=== PATIENT | male | born 1970 | race Caucasian/White ===

== ENCOUNTER 2016-10-01 20:48 | Emergency (ER) | payer MEDICAID ==
[~2016-10-01] VITALS: Ht 180.3 cm; Wt 115.6 kg
[~2016-10-01 20:48] MED LIST: RANI75TA12 PO
[2016-10-01 20:50] VITALS: BP 155/97
[2016-10-01] MEDS ORDERED: SILVER SULF. CRM 1%, 50GM ONE (21:28)
[2016-10-01] MEDS ORDERED: DIPH,PERTUSS(ACELL),TET VAC/PF 0.5 ML IM-VACC ONE ×2 (21:29→21:30)
[2016-10-01] MEDS ORDERED: SILVER SULF. CRM 1% , 25GM TP ONE (21:30)
[2016-10-01] MEDS ORDERED: HYDROcodone/APAP 5/325 TABLET PO STA (22:00)
[2016-10-01] MEDS ORDERED: HYDROcodone/APAP 5/325 TABLET ONE (22:01)
== END 2016-10-01 22:32 | disposition home or self-care (01) ==
LOC: ED 22:12
DX: T24.202A Burn of second degree of unspecified site of left lower limb, except ankle and foot, initial encounter (principal); W86.8XXA Exposure to other electric current, initial encounter; Y93.9 Activity, unspecified; Y92.89 Other specified places as the place of occurrence of the external cause; Y99.9 Unspecified external cause status; F17.200 Nicotine dependence, unspecified, uncomplicated
CPT/HCPCS: 16020; 90471; 90715

== ENCOUNTER 2016-10-04 18:30 | Emergency (ER) | payer MEDICAID ==
[~2016-10-04] VITALS: Ht 180.3 cm; Wt 114.4 kg
[2016-10-04 18:32] VITALS: BP 133/89
== END 2016-10-04 19:49 | disposition home or self-care (01) ==
LOC: ED 19:43
DX: L03.116 Cellulitis of left lower limb (principal); T24.202A Burn of second degree of unspecified site of left lower limb, except ankle and foot, initial encounter; X08.8XXA Exposure to other specified smoke, fire and flames, initial encounter; Y93.89 Activity, other specified; Y92.89 Other specified places as the place of occurrence of the external cause; Y99.9 Unspecified external cause status
CPT/HCPCS: 99283

== ENCOUNTER 2018-04-07 09:00 | Emergency (ER) | payer MEDICARE, BC ==
[~2018-04-07] VITALS: Ht 180.3 cm; Wt 113.6 kg
[~2018-04-07 09:00] MED LIST changes: +CEFD300C37 PO; +CYCL5TAB PO; +DOXY100T PO; +GABA800T2 PO; +OMEP20TA62 PO; +PANT40TA3 PO; +PRED20TA PO; +TAMS-11 PO; +TRAZ-137 PO
[2018-04-07] MEDS ORDERED: ASPIRIN 81 MG TABLET CHEW PO ONE (09:30)
[2018-04-07 09:33] LABS: BASOPHILS # (AUTO) 0.04 x10^3/uL (0-0.1); BASOPHILS % (AUTO) 0 % (0-1); EOSINOPHILS # (AUTO) 0.25 x10^3/uL (0-0.4); EOSINOPHILS % (AUTO) 2 % (1-7); LYMPHOCYTES # (AUTO) 1.81 x10^3/uL (1-3.4); LYMPHOCYTES % (AUTO) 17 % (22-44); MD NO; MEAN CORPUSCULAR HEMOGLOBIN 29.4 pg (27.5-34.5); MEAN CORPUSCULAR HGB CONC 33.7 g/dL (33.2-36.2); MEAN CORPUSCULAR VOLUME 87.3 fL (81-97); MONOCYTES # (AUTO) 0.84 x10^3/uL (0.2-0.8); MONOCYTES % (AUTO) 8 % (2-9); NEUTROPHILS # (AUTO) 7.98 x10^3/uL (1.8-6.8); NEUTROPHILS % (AUTO) 73 % (42-75); PLATELET COUNT 212 x10^3/uL (130-400); RED BLOOD COUNT 6.06 x10^6/uL (4.38-5.82); RED CELL DISTRIBUTION WIDTH 13.6 % (9.4-14.8)
[2018-04-07 09:41] LABS: INTERNATIONAL NORMALIZED RATIO 1.09 (0.93-1.1); PROTHROMBIN TIME 11.2 Seconds (9.6-11.5)
[2018-04-07 09:44] LABS: ALANINE AMINOTRANSFERASE 27 U/L (12-78); ANION GAP 1 mmol/L (5-15); CALCIUM 9.1 mg/dL (8.5-10.1); CHLORIDE 109 mmol/L (98-107); CREATININE 1.41 mg/dL (0.7-1.3)
[2018-04-07 09:48] LABS: ALKALINE PHOSPHATASE 99 U/L (45-117); BILIRUBIN,TOTAL 0.5 mg/dL (0.2-1.0); TOTAL PROTEIN 7.7 g/dL (6.4-8.2); TROPONIN I < 0.015 ng/mL (0.000-0.045)
[2018-04-07] MEDS ORDERED: ONDANSETRON ODT 4 MG ONE (09:50)
[2018-04-07] MEDS ORDERED: MECLIZINE CHEWABLE 25 MG TAB ONE (09:50)
[2018-04-07] MEDS ORDERED: ASPIRIN 81 MG TABLET CHEW ONE (09:50)
[2018-04-07] MEDS ORDERED: OMEP20TA62 PO (09:56)
[2018-04-07] MEDS ORDERED: ONDANSETRON ODT 4 MG PO ONE (10:00)
[2018-04-07] MEDS ORDERED: MECLIZINE CHEWABLE 25 MG TAB PO ONE (10:00)
[2018-04-07] MEDS ORDERED: MORPHINE SULFATE 4 MG/ML, 1ML ONE (11:09)
[2018-04-07 11:14] VITALS: BP 116/70
[2018-04-07] MEDS ORDERED: MORPHINE SULFATE 4 MG/ML, 1ML IVPush ONE (11:30)
[2018-04-07 11:51] LABS: CHOL/HDL RATIO 6.6; LDL/HDL RATIO 2.6 (0.5-3.0)
[2018-04-07] MEDS ORDERED: OMNIPAQUE 350 MG/ML, 100ML BOTTLE ONE (12:08)
[2018-04-07 12:23] LABS: HEMOGLOBIN A1C 5.4 % (4.2-6.3)
== END 2018-04-07 12:49 | disposition home or self-care (01) ==
LOC: ED 10:05 → UNDOADMIN 11:06 → EDIP 11:06 → ED 12:49
DX: R07.9 Chest pain, unspecified (principal); R94.31 Abnormal electrocardiogram [ECG] [EKG]; J44.9 Chronic obstructive pulmonary disease, unspecified
CPT/HCPCS: 36415; 71045; 71275; 80053; 80061; 82962; 83036; 83880; 84484; 85025; 85379; 85610; 93005; 96374; 99285; Q0162; Q9967

== ENCOUNTER 2018-11-08 10:49 | Emergency (ER) | payer BC, MEDICARE ==
[~2018-11-08] VITALS: Ht 180.3 cm; Wt 114.0 kg
[~2018-11-08 10:49] MED LIST changes: -GABA800T2 PO; +GABA800T5 PO
[2018-11-08] MEDS ORDERED: ONDANSETRON 2MG/ML, 2ML ONE (11:22)
[2018-11-08] MEDS ORDERED: MORPHINE SULFATE 4 MG/ML, 1ML ONE ×2 (11:22→13:29)
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
[2018-11-08] MEDS ORDERED: LIDOCAINE-MPF 1%, 5ML INFIL ONE (11:30)
[2018-11-08] MEDS ORDERED: MORPHINE SULFATE 4 MG/ML, 1ML IV PRN (11:30)
[2018-11-08] MEDS ORDERED: AMPICILLIN/SULBACTAM 3 GM in SODIUM CHLORIDE 0.9% 100 ML IV ONE (11:30)
[2018-11-08] MEDS ORDERED: ONDANSETRON 2MG/ML, 2ML IVPush ONE (11:30)
[2018-11-08] MEDS ORDERED: SODIUM CHLORIDE FLUSH 10ML SYR IVF ONE (11:30)
[2018-11-08] MEDS ORDERED: LIDOCAINE-MPF 1%, 5ML ONE ×3 (11:34→13:53)
--- NOTE | 2018-11-08 11:58 | NUR ---
XRAYS WERE TAKEN. LIDOCAINE AT BEDSIDE FOR NUMBING PRIOR TO CLEANING THE DOG BITES.
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
[2018-11-08] MEDS ORDERED: BACITRACIN ZINC OINT 500U/GM, 0.9 GM ONE ×2 (13:28→14:21)
[2018-11-08] MEDS ORDERED: OXYcodone/APAP 5/325MG TABLET PO ONE (13:30)
[2018-11-08] MEDS ORDERED: OXYcodone/APAP 5/325MG TABLET ONE (13:31)
--- NOTE | 2018-11-08 13:37 | NUR ---
Pt remedicated for pain with percocet as pt desated earlier after morphine to about 85%. Still waiting for ortho consult for hand.
[2018-11-08 14:31] VITALS: BP 107/69
== END 2018-11-08 14:33 | disposition home or self-care (01) ==
LOC: ED 13:29
DX: S61.451A Open bite of right hand, initial encounter (principal); S61.552A Open bite of left wrist, initial encounter; S61.452A Open bite of left hand, initial encounter; S91.352A Open bite, left foot, initial encounter; J44.9 Chronic obstructive pulmonary disease, unspecified; Z90.89 Acquired absence of other organs; W54.0XXA Bitten by dog, initial encounter; Y93.89 Activity, other specified; Y92.009 Unspecified place in unspecified non-institutional (private) residence as the place of occurrence of the external cause; Y99.8 Other external cause status
CPT/HCPCS: 12044; 73110; 73130; 73630; 96365; 96375; 99285; J0295; J2405; 99283; 99284

== ENCOUNTER 2019-07-08 08:53 | Emergency (ER) | payer BC, OTHER ==
[~2019-07-08] VITALS: Ht 180.3 cm; Wt 110.1 kg
[~2019-07-08 08:53] MED LIST changes: +RANI-244 PO; -RANI75TA12 PO; -TRAZ-137 PO; +TRAZ-175 PO
--- NOTE | 2019-07-08 09:54 | NUR ---
TO [facility]ILDA FROM LOBBY
[2019-07-08 10:26] LABS: BASOPHILS # (AUTO) 0.03 x10^3/uL (0-0.1); BASOPHILS % (AUTO) 0 % (0-1); EOSINOPHILS # (AUTO) 0.09 x10^3/uL (0-0.4); EOSINOPHILS % (AUTO) 1 % (1-7); LYMPHOCYTES # (AUTO) 1.18 x10^3/uL (1-3.4); LYMPHOCYTES % (AUTO) 12 % (22-44); MD NO; MEAN CORPUSCULAR HEMOGLOBIN 30.2 pg (27.5-34.5); MEAN CORPUSCULAR HGB CONC 33.5 g/dL (33.2-36.2); MEAN CORPUSCULAR VOLUME 90.3 fL (81-97); MEAN PLATELET VOLUME 8.5 fL (7.4-10.4); MONOCYTES # (AUTO) 0.96 x10^3/uL (0.2-0.8); MONOCYTES % (AUTO) 10 % (2-9); NEUTROPHILS # (AUTO) 7.72 x10^3/uL (1.8-6.8); NEUTROPHILS % (AUTO) 77 % (42-75); PLATELET COUNT 190 x10^3/uL (130-400); RED BLOOD COUNT 5.35 x10^6/uL (4.38-5.82); RED CELL DISTRIBUTION WIDTH 13.5 % (9.4-14.8)
[2019-07-08] MEDS ORDERED: ONDANSETRON 2MG/ML, 2ML IVPush ONE (10:30)
[2019-07-08] MEDS ORDERED: MORPHINE SULFATE 4 MG/ML, 1ML IVPush PRN (10:30)
[2019-07-08] MEDS ORDERED: SODIUM CHLORIDE FLUSH 10ML SYR IVF ONE (10:30)
[2019-07-08] MEDS ORDERED: KETOROLAC 30 MG/1 ML IVPush ONE (10:30)
[2019-07-08 10:38] LABS: ALBUMIN 3.6 g/dL (3.4-5.0); ANION GAP 5 mmol/L (5-15); CALCIUM 8.2 mg/dL (8.5-10.1); CHLORIDE 111 mmol/L (98-107); CREATININE 1.18 mg/dL (0.7-1.3)
[2019-07-08 10:41] LABS: TROPONIN I < 0.015 ng/mL (0.000-0.045)
[2019-07-08] MEDS ORDERED: KETOROLAC 30 MG/1 ML ONE (10:47)
[2019-07-08] MEDS ORDERED: ONDANSETRON 2MG/ML, 2ML ONE (10:47)
[2019-07-08] MEDS ORDERED: MORPHINE SULFATE 4 MG/ML, 1ML ONE (10:48)
--- NOTE | 2019-07-08 11:17 | NUR ---
PT PROVIDED WITH URINE CUP AND INSTRUCTIONS. PROVIDED WITH WATER AND SPRITE PER REQUEST. CALL LIGHT IN REACH.
[2019-07-08 12:01] LABS: MICROSCOPIC NOT IND
--- NOTE | 2019-07-08 12:34 | NUR ---
PT RESTING IN BED, CALL LIGHT IN LAP. DENIES ANY NEEDS OR CONCERNS AT THIS TIME.
[2019-07-08 14:16] VITALS: BP 127/76
== END 2019-07-08 14:18 | disposition home or self-care (01) ==
LOC: ED 13:21
DX: R06.00 Dyspnea, unspecified (principal); M54.6 Pain in thoracic spine; J44.9 Chronic obstructive pulmonary disease, unspecified
CPT/HCPCS: 36415; 71045; 74176; 80048; 81003; 82040; 84484; 85025; 93005; 96374; 96375; 99284; J1885; J2270; J2405